=== PATIENT | female | born 1970 | race Caucasian/White ===

== ENCOUNTER 2016-11-30 12:31 | Emergency (ER) | payer BC, MEDICAID, OTHER ==
[~2016-11-30] VITALS: Ht 167.6 cm; Wt 68.8 kg
[2016-11-30 12:36] VITALS: BP 122/86
[2016-11-30] MEDS ORDERED: L.E.T SOLUTION TP ONE (13:30)
== END 2016-11-30 14:09 | disposition home or self-care (01) ==
LOC: ED 13:59
DX: S80.211A Abrasion, right knee, initial encounter (principal); W22.8XXA Striking against or struck by other objects, initial encounter; Y93.89 Activity, other specified; Y99.8 Other external cause status; Y92.098 Other place in other non-institutional residence as the place of occurrence of the external cause
CPT/HCPCS: 99284